=== PATIENT | female | born 1980 ===

== ENCOUNTER 2017-10-03 07:33 | Emergency (ER) | payer OTHER ==
[2017-10-03 07:37] VITALS: BMI 23.2
[2017-10-03 07:40] VITALS: BP 124/102; PULSE 88; RESP 20; TEMP 98.5; O2SAT 98
[2017-10-03] MEDS ORDERED: Naproxen 500 MG TAB PO STA (08:01)
[2017-10-03] MEDS ORDERED: Naproxen 500 MG TAB PO ONE (08:04)
--- NOTE | 2017-10-03 08:11 | ED PDOC ---
Upper Extremity Pain/Injury Time Seen by Provider: 10/03/17 07:54 Chief Complaint (Nursing): Upper Extremity Problem/Injury History Per: Patient (36 yo female who presents to the ER because of slip and fall this morning that caused her to land on her right shoulder directly. There is no LOC. She has pain and difficulty moving her right shoulder. There is no dyspnea. She has not taken any meds.) History/Exam Limitations: no limitations Current Symptoms Are (Timing): Still Present Quality: Sharp Past Medical History Reviewed: Historical Data, Nursing Documentation, Vital Signs Vital Signs: Last Vital Signs Temp 98.5 F 10/03/17 07:37 Pulse 88 10/03/17 07:37 Resp 20 10/03/17 07:37 BP 124/102 H 10/03/17 07:37 Pulse Ox 98 10/03/17 07:37 - Medical History PMH: No Chronic Diseases - Surgical History Surgical History: No Surg Hx - Family History Family History: States: No Known Family Hx - Living Arrangements Living Arrangements: With Family - Home Medications Home Medications: Ambulatory Orders Medication Instructions Recorded Naproxen [Naprosyn] 500 mg PO BID PRN #20 tablet 10/03/17 - Allergies Allergies/Adverse Reactions: Allergies Allergy/AdvReac Type Severity Reaction Status Date / Time No Known Allergies Allergy Verified 10/03/17 08:01 Review of Systems ROS Statement: Except As Marked, All Systems Reviewed And Found Negative Constitutional: Negative for: Fever, Chills Gastrointestinal: Negative for: Nausea, Vomiting Musculoskeletal: Positive for: Shoulder Pain (right) Physical Exam - Reviewed Nursing Documentation Reviewed: Yes Vital Signs Reviewed: Yes - Physical Exam Appears: Positive for: Well, Non-toxic, No Acute Distress Head Exam: Positive for: ATRAUMATIC, NORMAL INSPECTION, NORMOCEPHALIC Skin: Positive for: Normal Color, Warm, DRY Eye Exam: Positive for: Normal appearance ENT: Positive for: Normal ENT Inspection Neck: Positive for: Normal Cardiovascular/Chest: Positive for: Regular Rate, Rhythm Respiratory: Positive for: CNT, Normal Breath Sounds Back: Positive for: Normal Inspection Extremity: Positive for: Normal ROM, Tenderness Neurologic/Psych: Positive for: Alert, Oriented - ECG O2 Sat by Pulse Oximetry: 98 Disposition - Clinical Impression Clinical Impression: Contusion of right shoulder - Patient ED Disposition Is Patient to be Admitted: No Doctor Will See Patient In The: Office Counseled Patient/Family Regarding: Diagnosis, Need For Followup, Rx Given - Disposition Disposition: Routine/Home Disposition Time: 09:17 Condition: STABLE Prescriptions: Naproxen [Naprosyn] 500 mg PO BID PRN #20 tablet PRN Reason: Pain, Moderate (4-7) Instructions: Contusion in Adults (ED) Forms: [facility] (Spanish), [facility] ED School/Work Excuse Print Language: MACEDONIAN - POA Present On Arrival: Falls Or Trauma
--- NOTE | 2017-10-03 09:56 | RAD ---
PROCEDURE: Radiographs of the Right Shoulder HISTORY: fall w/direct impact, PROM COMPARISON: No prior. FINDINGS: BONES: No acute fracture. JOINTS: Elevation of the clavicle relative to the acromion. Glenohumeral articulation is maintained. SOFT TISSUES: Normal. OTHER FINDINGS: None. IMPRESSION: Acromioclavicular joint separation versus normal variant. Clinical correlation and/or comparison radiography is recommended. No acute fracture. ER notification submitted electronically.
== END 2017-10-03 09:54 | disposition home or self-care (01) ==
LOC: H.ER 07:33
DX: S40.011A Contusion of right shoulder, initial encounter (principal); W01.0XXA Fall on same level from slipping, tripping and stumbling without subsequent striking against object, initial encounter

== ENCOUNTER 2018-06-18 15:40 | Emergency (ER) | payer OTHER ==
[2018-06-18 15:40] VITALS: BMI 23.2
[2018-06-18 15:59] VITALS: RESP 16
--- NOTE | 2018-06-18 17:04 | RAD ---
Date of service: 06/18/2018 HISTORY: chest pain COMPARISON: No prior. TECHNIQUE: Chest PA and lateral FINDINGS: LUNGS: No active pulmonary disease. PLEURA: No significant pleural effusion identified. No pneumothorax apparent. CARDIOVASCULAR: No atherosclerotic calcification present Normal. OSSEOUS STRUCTURES: No significant abnormalities. VISUALIZED UPPER ABDOMEN: Normal. OTHER FINDINGS: None. IMPRESSION: No active disease.
--- NOTE | 2018-06-18 17:41 | ED PDOC ---
HPI: Chest Pain Time Seen by Provider: 06/18/18 16:00 Chief Complaint (Nursing): Chest Pain Chief Complaint (Provider): RIGHT sided cp History Per: Patient History/Exam Limitations: no limitations Onset/Duration Of Symptoms: Hrs (3), Sudden Onset, Persistent Exacerbating Factors: Deep Breathing Alleviating Factors: None Additional Complaint(s): Sudden onset RIGHT sided chest pain while at rest. Worse when taking a deep breath. Denies shortness of breath. Denies cough/URI/fever. Denies nausea. PMD: None Past Medical History Reviewed: Historical Data, Nursing Documentation, Vital Signs Vital Signs: Last Vital Signs Temp 98.7 F 06/18/18 15:58 Pulse 69 06/18/18 15:58 Resp 16 06/18/18 15:58 BP 120/74 06/18/18 15:58 Pulse Ox 97 06/18/18 15:58 - Medical History PMH: No Chronic Diseases - Surgical History Surgical History: No Surg Hx - Family History Family History: States: No Known Family Hx - Social History Current smoker - smoking cessation education provided: No Alcohol: None Drugs: Denies - Home Medications Home Medications: Ambulatory Orders Medication Instructions Recorded Naproxen [Naprosyn] 500 mg PO BID PRN #20 tablet 10/03/17 Ibuprofen [Motrin Tab] 600 mg PO Q8 PRN #30 tab 06/18/18 - Allergies Allergies/Adverse Reactions: Allergies Allergy/AdvReac Type Severity Reaction Status Date / Time No Known Allergies Allergy Verified 06/18/18 16:08 LEAH Risk Score for UA/NSTEMI - LEAH Risk Score Age > 64: NO 3 or more CAD Risk Factors: NO Known CAD (Stenosis greater than 50%): NO Aspirin use in past 7 days: NO Severe Angina: NO EKG ST changes greater than 0.5mm: NO Positive Cardiac Marker: NO LEAH Score: 0 Risk %: 5% Curb-65 Severity Score - CURB-65 Severity Score Confusion: No Bun >19mg/dl (>7mmol/L): No Respiratory Rate greater than/equal to 30: No Systolic BP <90 or Diastolic BP less than/equal 60mmHg: No Age >64: No Curb-65 Score: 0 Percentage 30-day mortality: 0.6% Wells Criteria for PE - Wells Criteria for Pulmonary Embolism Clinical Signs and Symptoms of DVT: No P.E is #1 Diagnosis, or Equally Likely: No Heart Rate >100: No Immobilization at least 3 days;Surgery previous 4 weeks: No Previous, objectively diagnosed PE or DVT: No Hemoptysis: No Malignancy w/treatment within 6 months, or palliative: No Total Score: 0 Review of Systems ROS Statement: Except As Marked, All Systems Reviewed And Found Negative (and as per HPI) Cardiovascular: Positive for: Chest Pain. Negative for: Light Headedness Respiratory: Positive for: Pleuritic Pain. Negative for: Cough, Shortness of Breath, SOB with Exertion, Wheezing Physical Exam - Reviewed Nursing Documentation Reviewed: Yes Vital Signs Reviewed: Yes - Physical Exam Appears: Positive for: Non-toxic, No Acute Distress Head Exam: Positive for: ATRAUMATIC, NORMOCEPHALIC Skin: Positive for: Warm, Dry Eye Exam: Positive for: EOMI, PERRL ENT: Negative for: Pharyngeal Erythema, Tonsillar Exudate Neck: Positive for: Painless ROM, Supple Cardiovascular/Chest: Positive for: Regular Rate, Rhythm, Other (reproducible RIGHT upper anterior chest wall tenderness). Negative for: Murmur Respiratory: Positive for: Normal Breath Sounds. Negative for: Rales, Rhonchi, Wheezing, Respiratory Distress Gastrointestinal/Abdominal: Positive for: Soft. Negative for: Tenderness Back: Positive for: Normal Inspection. Negative for: Decreased ROM Extremity: Positive for: Normal ROM. Negative for: Pedal Edema, Calf Tenderness, Deformity Lymphatic: Negative for: Adenopathy Neurologic/Psych: Positive for: Alert. Negative for: Motor/Sensory Deficits - ECG ECG: Positive for: Interpreted By Ri ECG Rhythm: Positive for: Normal QRS, Normal ST Segment, Sinus Rhythm (72) O2 Sat by Pulse Oximetry: 97 Pulse Ox Interpretation: Normal - Radiology X-Ray: Read By Radiologist - Other Rad chest X-Ray: Read By Radiologist X-Ray Interpretation: Accession No. : [id number] Disposition - Clinical Impression Clinical Impression: Chest wall pain Counseled Patient/Family Regarding: Studies Performed, Diagnosis, Need For Followup, Rx Given - Disposition Referrals: [facility] [Outside] ([facility]) Disposition: Routine/Home Disposition Time: 17:00 Condition: STABLE Prescriptions: Ibuprofen [Motrin Tab] 600 mg PO Q8 PRN #30 tab PRN Reason: Pain, Moderate (4-7) Instructions: Costochondritis (DC), Chest Pain That Is Not Caused by the Heart (DC) Print Language: HUNGARIAN
[2018-06-18 18:23] VITALS: BP 118/72; PULSE 67; TEMP 98.2; O2SAT 98
--- NOTE | 2018-06-19 12:32 | CARD ---
APPROVED REPORT Date of service: 06/18/2018 EKG Measurement Heart [id number] <Conclusion> Normal sinus rhythm Normal ECG
== END 2018-06-18 18:24 | disposition home or self-care (01) ==
LOC: H.ER 15:40
DX: R07.9 Chest pain, unspecified (principal)